=== PATIENT | male | born 2000 | race Two or more races ===

== ENCOUNTER 2021-12-21 06:35 | Emergency (ER) | payer MEDICAID ==
[~2021-12-21] VITALS: Ht 180.3 cm; Wt 83.9 kg
--- NOTE | 2021-12-21 06:49 | NUR ---
PT AMBULATED TO ER BED 07
[2021-12-21 06:54] VITALS: BP 133/71
--- NOTE | 2021-12-21 07:01 | NUR ---
TO BED 7 WITH C/O SORE THROAT X 1.5 DAYS. PT STATES PAIN IS 10/10
[2021-12-21] MEDS ORDERED: DEXAMETHASONE 10 MG/ML VIAL PO ONE (07:10)
[2021-12-21] MEDS ORDERED: IBUPROFEN 600 MG TAB PO ONE (07:10)
--- NOTE | 2021-12-21 07:44 | NUR ---
MAXX AND THROAT CULTURES COLLECTED AND WALKED TO LAB.
[2021-12-21] MEDS ORDERED: IBUP-2213 PO (07:45)
[2021-12-21] MEDS ORDERED: ACET-10509 PO (07:45)
--- NOTE | 2021-12-21 08:45 | NUR ---
PATIENT RESTING IN BED, VSS, RESPIRATIONS EVEN AND UNLABORED. NO SIGNS OF DISTRESS NOTED AT THIS TIME. WILL CONTINUE TO MONITOR.
[2021-12-21 10:05] VITALS: BP 122/64
--- NOTE | 2021-12-21 10:05 | NUR ---
Patient discharged with v/s stable. Written and verbal after care instructions ABOUT PHARYNGITIS given and explained. Patient alert, oriented and verbalized understanding of instructions. Ambulatory with steady gait. All questions addressed prior to discharge. ID band removed. Patient advised to follow up with PMD. Rx of ACETAMINOPHEN TAB AND IBUPROFEN given.
--- NOTE | 2021-12-21 10:10 | NUR ---
Chart checked and completed. The patient's care was reviewed and supervised by Janis Wright RN.
== END 2021-12-21 10:05 | disposition home or self-care (01) ==
LOC: MED 06:35
DX: J02.9 Acute pharyngitis, unspecified (principal); Z20.822 Contact with and (suspected) exposure to COVID-19; M79.10 Myalgia, unspecified site; R09.89 Other specified symptoms and signs involving the circulatory and respiratory systems; Z79.899 Other long term (current) drug therapy
CPT/HCPCS: 87081; 87426; 99283; J1100